=== PATIENT | female | born 1965 | race Caucasian/White ===

== ENCOUNTER 2022-08-30 07:57 | Observation (INO) | payer OTHER ==
[2022-08-30] MEDS ORDERED: IBUPROFEN 600 MG TABLET (FP) PO ONE ×2 (09:04→09:09)
[2022-08-30 09:24] LABS: BASO % 0.8 % (0-2.0); EOS % 1.3 % (0-4.5); HEMATOCRIT 37.2 % (32.4-45.2); HEMOGLOBIN 12.9 GM/dL (10.7-15.3); LYMPH % 16.4 % (8-40); MCH 29.7 pg (25.7-33.7); MCHC 34.7 g/dl (32.0-36.0); MEAN CELL VOLUME 85.5 fl (80-96); MEAN PLT VOLUME 9.8 fl (7.5-11.1); MONO % 6.8 % (3.8-10.2); NEUT % 74.7 % (42.8-82.8); PLATELET COUNT 230 10^3/uL (134-434); RBC 4.35 M/mm3 (3.60-5.2); RDW 12.8 % (11.6-15.6)
[2022-08-30] MEDS ORDERED: LIDOCAINE 5% TOPICAL PATCH TP ONE (09:40)
[2022-08-30] MEDS ORDERED: LIDOCAINE 5% TOPICAL PATCH ONE (09:43)
[2022-08-30 09:47] LABS: POTASSIUM 4.8 mmol/L (3.5-5.1)
[2022-08-30 09:49] LABS: ALBUMIN 3.9 g/dl (3.4-5.0); CALCIUM 9.2 mg/dL (8.5-10.1)
[2022-08-30 09:53] LABS: CREATININE 0.9 mg/dL (0.55-1.3)
[2022-08-30 09:54] LABS: BILIRUBIN,TOTAL 0.5 mg/dL (0.2-1)
[2022-08-30 12:54] VITALS: BMI 25.9
[2022-08-30] MEDS ORDERED: SODIUM CHLORIDE 1,000 ML IV SCH (17:15)
[2022-08-30] MEDS ORDERED: ACETAMINOPHEN 500 MG TABLET (FP) PO PRN ×2 (17:17→20:59)
[2022-08-30] MEDS ORDERED: DOCUSATE SODIUM 100 MG CAPSULE (FP) PO PRN (17:17)
[2022-08-30] MEDS ORDERED: oxyCODONE HCL 5 MG TABLET PO PRN ×2 (17:17)
[2022-08-30] MEDS ORDERED: NALOXONE HCL 0.4 MG/ML VIAL IVPUSH PRN (17:17)
[2022-08-30] MEDS ORDERED: LOSARTAN POTASSIUM 50 MG TABLET PO ONE (20:57)
[2022-08-30] MEDS ORDERED: LIDOCAINE PATCH REMOVAL MC SCH ×2 (22:00)
[2022-08-31] MEDS ORDERED: LEVOTHYROXINE NA 100 MCG TABLET (FP) PO SCH (07:00)
[2022-08-31 07:40] LABS: POTASSIUM 4.6 mmol/L (3.5-5.1)
[2022-08-31 07:49] LABS: BLOOD UREA NITROGEN 13.9 mg/dL (7-18)
[2022-08-31 07:51] LABS: CREATININE 0.8 mg/dL (0.55-1.3)
[2022-08-31 09:53] VITALS: PULSE 68; RESP 20; TEMP 98
[2022-08-31] MEDS ORDERED: ZINC SULFATE 220 MG CAPSULE (FP) PO SCH (10:00)
[2022-08-31] MEDS ORDERED: CHOLECALCIFEROL (VIT D3) 400 UNIT (10 MCG) TABLET PO SCH (10:00)
[2022-08-31] MEDS ORDERED: LIDOCAINE 5% TOPICAL PATCH TP SCH (10:00)
[2022-08-31] MEDS ORDERED: amLODIPine BESYLATE 2.5 MG TABLET (FP) PO SCH (10:00)
[2022-08-31] MEDS ORDERED: LOSARTAN POTASSIUM 50 MG TABLET PO SCH ×2 (10:00)
[2022-08-31 10:05] VITALS: BP 127/78
== END 2022-08-31 14:49 | disposition home or self-care (01) ==
LOC: JER 07:57 → JERBED 11:40 → J4W 15:22
PROVIDERS: ADMIT Internal Medicine; ATTEND Internal Medicine
PROC: 3E0337Z Introduction of Electrolytic and Water Balance Substance into Peripheral Vein, Percutaneous Approach (ICD-10-PCS; principal; 2022-08-30)
DX: R55 Syncope and collapse (principal); M54.50 Low back pain, unspecified; I10 Essential (primary) hypertension; E03.9 Hypothyroidism, unspecified; E78.5 Hyperlipidemia, unspecified
CPT/HCPCS: 36415; 71045-TC-FY; 80048; 80053; 82962; 84439; 84443; 84484; 85025; 93005; 93010; 93306-TC; 93880-TC; 96360; 97116-GP; 97161-GP; 99285-25; C9803-CS; G0378; U0003; U0005